=== PATIENT | female | born 1980 | race Caucasian/White ===

== ENCOUNTER 2016-08-06 19:40 | Inpatient (IN) | payer MEDICARE ==
--- NOTE | ~2016-08-06 | EKG ---
PATIENT: LUPE SOTELO UNIT #: [id number] Ventricular Rate: 75 BPM Atrial Rate: 75 BPM P-R Interval: 154 ms QRS Duration: 94 ms Q-T Interval: 390 ms QTC Calculation(Bezet): 435 ms P Dell: 55 degrees Calculated R Dell: 53 degrees Calculated T Dell: 13 degrees Diagnosis Line: Normal sinus rhythm Diagnosis Line: Normal ECG Diagnosis Line: When compared with ECG of 13-JUN-2016 05:28, Diagnosis Line: No significant change was found Diagnosis Line: Confirmed by SHRUTHI WARD MD ([id number]) on 08/07/2016 Diagnosis Line: 8:06:46 PM INTERPRETING MD: ED MILLER
--- NOTE | ~2016-08-06 | HP ---
Unit #: [id number] #: [id number] Patient: LUPE SOTELO [id number] [address] [place], [place] [address] [id number] I MR#: [id number] NAME: LUPE SOTELO. ROOM: 50014 Age: 35 Sex: F Admission Date: 08/07/2016 : 1980 Attending Physician: Gabriela Thompson M.D. Primary Care Physician: Kenya Lee M.D. HISTORY AND PHYSICAL CHIEF COMPLAINT Right leg DVT. HISTORY This pleasant 35-year-old female with remote postop PE in 2004, hypertension, is admitted for right leg DVT. Patient states that she had a cardiac catheterization performed about 3 weeks ago at [facility]. She noted some discomfort in the right leg, and some swelling in the right leg at some point afterwards. She was cleared to go on a vacation in the [facility]. Left 4 days afterwards. Developed increasing pain and swelling of the right leg and was seen at an ER in the [facility]. She reports an elevated D-dimer and that an ultrasound was performed. The ultrasound showed some lymphadenopathy but no DVT. She was placed on Levaquin. Due to increasing pain and swelling of the leg, she presented to this emergency department late last evening. Doppler performed shows right leg DVT. Patient complains of pain in the entire right leg into the right groin, right abdomen, right thigh. In the ER, she was given 5 mg Lortab but continues with pain. She was given 70 mg Lovenox and a little bit of Ativan for chest discomfort. CTA of the chest was negative for PE. The patient was treated for a pulmonary embolus which occurred after laparoscopic cholecystectomy 2004. She states that during her she was placed on Lovenox prophylactically. She denies definite hypercoagulable state that she knows of, or family history of blood clots. PAST MEDICAL HISTORY 1. Migraine headaches. 2. Cardiac catheterization recently performed at [facility] reportedly negative. On previous echo, the patient was noted to have mild MR, TR and AR. 3. Essential hypertension. 4. Hyperlipidemia. 5. Bipolar disorder. 6. Chronic nausea and vomiting status post EGD. 7. Fatty liver. 8. PE following laparoscopic cholecystectomy 2004. 9. Left shoulder surgery. 10. Jaw surgery. 11. Endometrial ablation. 12. BTL. ALLERGIES Unit #: [id number] #: [id number] Patient: LUPE SOTELO Penicillin. HOME MEDICATIONS 1. Lopressor 50 mg daily 2. Phenergan p.r.n. 3. Klonopin 1 mg b.i.d. 4. Crestor 5 mg daily 5. Aspirin 325 mg daily FAMILY HISTORY Negative for blood clots. SOCIAL HISTORY The patient lives with her and children. Lifelong nonsmoker. Drinks occasional alcohol. REVIEW OF SYSTEMS Notable for increasing pain and swelling of the right leg, right groin into the right lower abdomen. Migraines, hypertension, hyperlipidemia, bipolar disorder, chronic nausea, PE in the past, fatty liver, above-mentioned surgeries. All other systems were reviewed and are otherwise negative. PHYSICAL EXAMINATION GENERAL: Pleasant 35-year-old female currently in no acute distress. VITAL SIGNS: Temperature 98.3, pulse 90, respirations 20, blood pressure 154/101, O2 saturation 100% on room air. HEENT EXAMINATION: Eyes PERRLA. Extraocular muscles are intact. Pharynx is benign. NECK: Supple without adenopathy or thyromegaly. CHEST: Clear. CARDIAC: Normal S1, S2 without S3, S4 or murmur. ABDOMEN: Bowel sounds are present. No hepatosplenomegaly, tenderness or masses. EXTREMITIES: Notable for edema of the right leg with some mild erythema. Pedal pulses are present. Positive Homans sign. Right groin with good pulse. NEUROLOGIC EXAM: Patient is awake, alert, oriented. Cranial nerves are intact. Equal strength throughout. DIAGNOSTIC STUDIES ADMISSION LABORATORY: Hematocrit 42.8, normal white count and platelet count. SMA-12: Potassium 3.2 Lactic acid normal. IMAGING 1. Doppler of the leg: Right leg common femoral vein DVT, DVT in the superficial femoral vein and the profunda femoral vein. 2. CTA of the chest: Negative for PE. CARDIOLOGY: EKG - Normal sinus rhythm, rate 75, normal appearing. ASSESSMENT 1. Right leg deep vein thrombosis. Patient had cardiac catheterization 3 weeks ago. Four days after the cardiac catheterization did fly to Unit #: [id number] #: [id number] Patient: LUPE SOTELO the [facility]. However, she does have history of a postop DVT in 2004. Current CTA is negative. 2. Migraine headaches. 3. Essential hypertension. 4. Bipolar disorder. 5. History of nausea. PLANS 1. Continue Lovenox. Will decide on an oral anticoagulant in the morning. 2. Would recommend outpatient Hematology evaluation. 3. Pain control. 4. Obtain recent records from [facility]. 5. Decrease aspirin. 6. Replace potassium for low potassium. Dictated by Gabriela Thompson M.D. AML/psc TD: 08/07/2016 02:17 JOB #: [id number] CC: Kenya Lee M.D. HISTORY AND PHYSICAL Page 1 of 1 X Gabriela Thompson MD X HISTORY AND PHYSICAL
--- NOTE | ~2016-08-06 | CO ---
Unit #: [id number] #: [id number] Patient: LUPE SOTELO [id number] [address] [place], [place] [address] [id number] I MR#: [id number] NAME: LUPE SOTELO ROOM: 237 Age: 35 Sex: F Admission Date: 08/07/2016 : 1980 Attending Physician: So Flores M.D. Primary Care Physician: Kenya Lee M.D. Consultation Date: 08/07/2016 CONSULTATION REPORT CHIEF COMPLAINT PE in 2004 after cholecystectomy, now right lower extremity DVT after cardiac catheterization. HISTORY OF PRESENT ILLNESS This is a 35-year-old female who had a cholecystectomy during 2004. Subsequently, she developed a PE. She received three months of Coumadin. No hypercoagulable workup. No one in the family has thrombosis. On July 21, 2016, patient had a cardiac cath. Patient also had a long plane ride of almost eight hours. Patient noticed right lower extremity swelling a couple of weeks ago which gradually worsened. Patient had a venous Doppler ultrasound on August 06, 2016, that showed thrombosis in the right femoral vein, profunda femoral vein, and proximal superficial femoral vein. She is receiving Lovenox. She has significant pain and is asking for multiple pain medications. Patient had a CT of the chest on August 06, 2016, that showed no PE. REVIEW OF SYSTEMS CONSTITUTIONAL: No fever, no chills, no sweats, no weight loss. EYES: No visual symptoms. EARS, NOSE AND THROAT: There is no runny nose or sore throat or difficulty hearing. CARDIOVASCULAR: No chest pain. No shortness of breath. No palpitations. No orthopnea. No PND. RESPIRATORY: No cough. No wheezing. No hemoptysis. GASTROINTESTINAL: No nausea, vomiting, diarrhea, constipation, hematochezia or melena. GENITOURINARY: No urinary frequency, hesitancy or urgency. No blood in the urine. MUSCULOSKELETAL: As mentioned above. Right lower extremity pain. NEUROLOGIC: No headache. No numbness or tingling. No weakness. No seizure. PSYCHIATRIC: No anxiety, depression or mood disturbance. ENDOCRINE: No excessive urination or thirst. DERMATOLOGIC: No rash or change in the skin. ALLERGIC/IMMUNOLOGIC: No symptoms. HEMATOLOGIC/LYMPHATIC: Denies any symptoms. PAST MEDICAL HISTORY 1. Pulmonary embolism in 2004 after cholecystectomy. 2. Deep venous thrombosis after cardiac cath diagnosed yesterday. 3. Hypertension. 4. Increased cholesterol. Unit #: [id number] #: [id number] Patient: LUPE SOTELO 5. Depression and anxiety. PAST SURGICAL HISTORY 1. Cholecystectomy. 2. Tubal ligation. 3. Uterine ablation. 4. Left shoulder surgery. 5. Jaw surgery. ALLERGIES Penicillin. SOCIAL HISTORY No smoking, no alcohol, and no drugs. She works at [employer]. FAMILY HISTORY No one in the family has had thrombosis or bleeding. Grandmother was a smoker and had lung cancer. CURRENT MEDICATIONS 1. Lipitor. 2. Toprol. 3. Lovenox. 4. Klonopin. 5. Aspirin. 6. Percocet. PHYSICAL EXAMINATION VITAL SIGNS: Afebrile, pulse 90, respiratory rate 24, O2 saturation on 2 liters 95%, and blood pressure 160/70. GENERAL: Patient is comfortable. ECOG is 0. The patient is pleasant. HEENT: Moist mucosa. Pupils equally reactive to light. Extraocular muscles intact. Sclerae anicteric. No obvious bleeding from nasal mucosa or oral mucosa. Scalp normal. Hearing normal. NECK: No JVD. No lymphadenopathy. LYMPHATIC/HEMATOLOGIC: There is no palpable adenopathy in the neck, axilla or inguinal area. CARDIOVASCULAR: S1, S2. Regular rate and rhythm. No S3 or S4. RESPIRATORY: Chest symmetrical, normal. Clear to auscultation bilaterally. No wheezes, no rales, no rhonchi. No dullness to percussion. ABDOMEN/GASTROINTESTINAL: Abdomen is soft, nontender, nondistended. No hepatosplenomegaly. EXTREMITIES: Right lower extremity swelling and tenderness. No warmth. There is no clubbing and no cyanosis. No varicose veins. NEUROLOGICAL: Patient is alert, awake and oriented x3. Cranial nerves II-XII are intact. Sensory grossly intact. Motor is 4/5 in all four extremities. Gait is normal. Station is normal. Language is normal. Memory is normal. DTRs +2 in all four extremities. MUSCULOSKELETAL: No joint swelling. No bony tenderness. No muscle tenderness. SKIN: No petechiae, no rash, no ecchymosis. PSYCHIATRIC: No anxiety. No delusions or hallucinations. There is no agitation. Eye contact is normal. Affect is appropriate. There is no flight of ideas. DIAGNOSTIC STUDIES LABORATORY: WBC 7.3, hemoglobin 12.7, and platelets 229,000. Creatinine is 0.8. LFTs are normal. Unit #: [id number] #: [id number] Patient: LUPE SOTELO IMAGING: CT scan as mentioned above. Ultrasound as mentioned above. ASSESSMENT This is a 35-year-old female who has recurrent thrombosis. She had a pulmonary embolism in 2004 after a cholecystectomy, now with deep venous thrombosis in the right lower extremity after cardiac catheterization. Patient had access on the right lower extremity. Symptomatic. DISCUSSION I had an extensive discussion with the patient. She needs hypercoagulable workup as an outpatient. She wants Coumadin. PLAN Patient will continue Lovenox. I will start Coumadin today. Tomorrow, we will ask her to walk around. If there are no symptoms, then she will go home tomorrow afternoon. I will follow the patient on Thursday. Will monitor her PT-INR. I will do hypercoagulable workup as an outpatient. Dictated by... Sabi Tomlinson/clementine TD: 08/07/2016 14:38 JOB #: [id number] CONSULTATION REPORT Page 1 of 1 X Jamir Teran MD X CONSULTATION REPORT
--- NOTE | ~2016-08-06 | US85 ---
[facility] A Service [facility] RADIOLOGY TEXT RESULTS PATIENT: LUPE SOTELO LOCATION: [facility] 237-01 : [birth year] UNIT #: [id number] AGE: [address]: So Flores MD SEX: F ORDER DR: [id number] [facility] [address] [place], [place] [address] [id number] I MR#: [id number] Acc #: [id number] NAME: LUPE SOTELO. : 1980 SEX: F STUDY DATE/TIME: 08/06/2016 20:24 UNIT: [facility] ROOM: [facility] STUDY DESCRIPTION: US LE Veins Unilat or Ltd Stdy Attending Physician: Gabriela Thompson M.D. Ordering Physician: Josh Moses Aprn Primary Care Physician: Kenya Lee M.D. MEDICAL IMAGING REPORT This report is preliminary unless electronic signature is present EXAM Right lower extremity venous Doppler HISTORY Right lower extremity pain for 2.5 days. History of hypertension, heart cath 07/21/2016. FINDINGS 2-D and Doppler evaluation of the right lower extremity demonstrates absence of Doppler flow and noncompressible lumen of the common femoral and profunda femoral veins, and also within a portion of the superficial femoral vein compatible with deep venous thrombosis. There is normal phasic flow within the anterior-posterior tibial veins and also within the peroneal veins and proximal and distal saphenous veins. Normal flow and compressibility within these veins. IMPRESSION Abnormal right lower extremity venous Doppler demonstrating findings compatible with acute thrombus within the right common femoral vein, profunda femoral vein and proximal superficial femoral vein. Dictated by... Silvano Ramos M.D. THIS IS AN ELECTRONICALLY VERIFIED REPORT Silvano Ramos M.D. at 08/07/2016 2:03 PM PATRICIA/andrea TD: 08/06/2016 22:47 JOB #: [id number] MEDICAL IMAGING REPORT [facility] A Service [facility] RADIOLOGY TEXT RESULTS PATIENT: LUPE SOTELO LOCATION: [place] [address] : [birth year] UNIT #: [id number] AGE: [address]: So Flores MD SEX: F ORDER DR: Page 1 of 1 COPY
--- NOTE | ~2016-08-06 | CT16 ---
[facility] A Service of [facility] & [facility] RADIOLOGY TEXT RESULTS PATIENT: LUPE SOTELO LOCATION: [facility] 237-01 : [birth year] UNIT #: [id number] AGE: [address]: So Flores MD SEX: F ORDER DR: [id number] [facility] [address] [place], [place] [address] [id number] E MR#: [id number] Acc #: [id number] NAME: LUPE SOTELO : 1980 SEX: F STUDY DATE/TIME: 08/06/2016 22:06 UNIT: [facility] ROOM: STUDY DESCRIPTION: CT Angio Chest for PE Attending Physician: Chato Minor M.D. Ordering Physician: Josh Moses Aprn Primary Care Physician: Kenya Lee M.D. MEDICAL IMAGING REPORT This report is preliminary unless electronic signature is present EXAM CT angiogram for PE chest HISTORY Short of air, chest pain, heart cath 2 weeks ago with a wound in the right groin for the past week, redness in the legs, elevated liver enzymes, history of uterine ablation. COMMENTS CT of the chest performed in the axial plane during the intravenous administration of 80 mL of Isovue-370 for the purpose of obtaining a CT pulmonary angiogram. This is followed by 3-D coronal MIP reconstructed images. There is a comparison study from 04/07/2016. This CT exam was performed with one or more of the following radiation dose reduction techniques: Automatic exposure control, adjustment of mA and/or kV according to patient size, and iterative reconstruction. There is no evidence for thoracic aortic dissection. There is nothing to suggest pulmonary embolism. There is no pleural effusion. There is no pericardial effusion. There is severe degenerative change/deformity at the left humeral head. Please correlate for prior trauma history with secondary arthritis. No definite axillary lymphadenopathy. No hilar or mediastinal lymphadenopathy. Partly seen in the upper abdomen is air in the biliary tree. Please correlate for history of sphincterotomy. The patient has had a cholecystectomy. There is no pneumothorax. There is no acute-appearing parenchymal infiltrate. IMPRESSION 1. No evidence for pulmonary embolism. No thoracic aortic dissection, pleural or pericardial effusion. No parenchymal infiltrate. 2. There is some air in the biliary tree and the patient has had a RUST. [facility] A Service of [facility] RADIOLOGY TEXT RESULTS PATIENT: LUPE SOTELO LOCATION: [facility] 237-01 : [birth year] UNIT #: [id number] AGE: [address]: So Flores MD SEX: F ORDER DR: cholecystectomy. The air is probably related to a previous sphincterotomy and please correlate with the history. Dictated by... Allegra Zhong M.D. THIS IS AN ELECTRONICALLY VERIFIED REPORT Allegra Zhong M.D. at 08/07/2016 11:44 AM INDY/andrea TD: 08/06/2016 23:33 JOB #: [id number] MEDICAL IMAGING REPORT Page 1 of 1 COPY
--- NOTE | ~2016-08-06 | DS ---
Unit #: [id number] #: [id number] Patient: LUPE SOTELO [id number] [address] [address] [id number] I MR#: [id number] NAME: LUPE SOTELO. ROOM: 237 Age: 35 Sex: F Admission Date: 08/07/2016 : 1980 Discharge Date: 08/08/2016 Attending Physician: So Flores M.D. Primary Care Physician: Kenya Lee M.D. DISCHARGE SUMMARY DISCHARGE DIAGNOSES 1. Right leg deep venous thrombosis. 2. History of pulmonary embolism. 3. Migraine headaches. 4. Hypertension. 5. Bipolar. 6. History of nausea. 7. Hyperlipidemia. 8. Fatty liver. CONSULTATION Dr. Teran. PROCEDURES None. DIAGNOSTIC STUDIES LABORATORY: Blood cultures negative. Vitamin B12 421 and ferritin 31. INR 1. Creatinine 0.8. Hemoglobin 12.3. IMAGING: Ultrasound of the extremities positive for right leg DVT. CT angio of chest shows no PE. ALLERGIES Penicillin. DISCHARGE MEDICATIONS 1. Lovenox 80 mg subcu. b.i.d. for 7 more days. 2. Coumadin 5 mg p.o. daily. 3. Phenergan 25 p.o. q.6 p.r.n. nausea. 4. KlonoPIN 1 mg p.o. b.i.d. 5. Toprol XL 50 p.o. daily. 6. Rosuvastatin 5 mg p.o. daily. 7. Aspirin 81 daily. HOSPITALIZATION COURSE This is a 35-year-old admitted because right leg pain and swelling. Right leg DVT with history of PE: Started on Lovenox. Patient seen by Dr. Teran. He started on Coumadin. Patient wants to continue the Coumadin. She does not want to try any other agents. Patient was given Lovenox and Coumadin, prescription by Dr. Teran. He will follow her as an outpatient. Patient will have PT/INR checked on Thursday, which is Unit #: [id number] #: [id number] Patient: LUPE SOTELO 08/11/2016. Follow up with Dr. Teran with PT/INR results. History of chronic migraines: Stable. Bipolar: Stable. Hypertension: Well controlled. DISPOSITION Discharged home. DISCHARGE INSTRUCTIONS 1. Follow up with family physician in one week's time. 2. Patient will have Coumadin education before discharge. 3. Follow up with Dr. Teran on Thursday. Dictated by... Sabi Sutherland TD: 08/09/2016 06:09 JOB #: [id number] DISCHARGE SUMMARY Page 1 of 1 X So Flores MD X DISCHARGE SUMMARY
[~2016-08-06 19:40] MED LIST: ACETAMINOPHEN PO; ALPRAZOLAM; ALPRAZOLAM PO; AMBIEN; AMBIEN10 MG PO; AMLODIPINE BESYL5 MG PO; ASPIRIN81 M2 PO; BENZONATATE; CRESTOR PO; DICYCLOMINE HCL10 MG PO; DOLOBID PO; ERYTHROMYCIN B500 MG PO; FLEXERIL PO; FLEXERIL10 M1 PO; GEODON60 MG PO; IMITREX; KETOPROFEN PO; KLONOPIN1 MG PO; LEVAQUIN PO; LISINOPRIL5 MG PO; LOPRESSOR PO; LOVENOX; LYRICA PO; LYRICA100 MG PO; MAGIC MOUTHWASH PO; MEDROL DOSEPAK4 MG PO; METOPROLOL SUCC50 MG PO; NORVASC PO; ORUDIS75 M1 PO; OXCARBAZEPINE600 MG; PAROXETINE PO; PAXIL PO; PERCOCET5/325 PO; PHENERGAN PO; PHENERGAN12.5 MG PO; PHENERGAN25 M1 PO; PHENERGAN25 MG PO; PREDNISOLONE5 MG PO; PREDNISONE PO; PRENATAL MULITV1 TAB; SIMVASTATIN40 MG PO; STOMACH PILL; TOPAMAX25 MG PO; TOPROL XL; TOPROL XL 50 MG50 MG PO; ULTRACET TABLET1 TAB PO; VICODIN 5/500 T1 TAB PO; VOLTAREN75 MG PO; XANAX2 MG PO; ZOCOR; ZOFRAN ODT4 MG PO; ZOFRANODT SL; [UNRECOGNIZED DRUG - OTHER]
[2016-08-06 20:16] LABS: BASOPHIL# 0.1 X10e3 (0-0.3); BASOPHIL% 1.1 % (0-2.5); EOSINOPHIL# 0.3 X10e3 (0-0.7); EOSINOPHIL% 3.1 % (0.0-7.0); HEMATOCRIT 42.8 % (35.0-45.0); HEMOGLOBIN 13.9 gm/dL (12.0-16.0); LYMPHOCYTE# 1.7 X10e3 (1.0-3.5); LYMPHOCYTE% 21.5 % (17.0-45.0); MEAN CORPUSCULAR HEMOGLOBIN 27.9 PG (28-34); MEAN CORPUSCULAR HGB CONC 32.4 g/dL (30-36); MEAN PLATELET VOLUME 8.6 FL (6.5-11.5); MONOCYTE# 0.5 X10e3 (0-1.0); MONOCYTE% 5.9 % (3.0-12.0); NEUTROPHIL# 5.5 X10e3 (1.5-7.1); NEUTROPHIL% 68.4 % (40-75); PLATELET COUNT 278 X10e3 (140-420); RED BLOOD COUNT 4.98 X10e (3.90-5.30); RED CELL DISTRIBUTION WIDTH 13.9 % (11.0-15.5); WHITE BLOOD COUNT 8.1 X10e3 (4.0-10.5)
[2016-08-06 20:17] LABS: DIFF IND NO
[2016-08-06 20:42] LABS: ALBUMIN SERUM 4.7 g/dL (3.5-5.0); ALKALINE PHOSPHATASE 76 U/L (32-92); ALT (SGPT) 38 U/L (10-40); AST (SGOT) 26 U/L (10-42); BILIRUBIN,TOTAL 0.5 mg/dL (0.2-2.0); BLOOD UREA NITROGEN 14 mg/dL (9-23); CALCIUM SERUM 9.4 mg/dL (8.4-10.2); CARBON DIOXIDE 23 mmol/L (22-31); CHLORIDE 105 mmol/L (100-111); GLOM FILT RATE Estimated 71.9 mL/min (>60); GLUCOSE FASTING 102 mg/dL (70-110); POTASSIUM 3.2 mmol/L (3.5-5.1); PROTEIN TOTAL SERUM 8.1 g/dL (6.0-8.3); SODIUM 140 mmol/L (135-145)
[2016-08-06 20:44] LABS: BILIRUBIN, DIRECT <0.1 mg/dL (0.0-0.2); BILIRUBIN,INDIRECT 0.4 mg/dL (0.0-0.9)
[2016-08-06] MEDS ORDERED: CRESTOR5 MG PO (23:58)
[2016-08-06] MEDS ORDERED: LEVAQUIN750 MG PO (23:59)
[2016-08-06] MEDS ORDERED: COATED ASPIRIN325 M1 PO (23:59)
[2016-08-07 07:05] LABS: BASOPHIL# 0.1 X10e3 (0-0.3); BASOPHIL% 1.3 % (0-2.5); EOSINOPHIL# 0.3 X10e3 (0-0.7); EOSINOPHIL% 4.1 % (0.0-7.0); HEMATOCRIT 38.7 % (35.0-45.0); HEMOGLOBIN 12.7 gm/dL (12.0-16.0); LYMPHOCYTE# 2.4 X10e3 (1.0-3.5); LYMPHOCYTE% 32.8 % (17.0-45.0); MEAN CELL VOLUME 85.5 FL (83-96); MEAN CORPUSCULAR HGB CONC 32.8 g/dL (30-36); MEAN PLATELET VOLUME 8.6 FL (6.5-11.5); MONOCYTE# 0.5 X10e3 (0-1.0); MONOCYTE% 7.4 % (3.0-12.0); NEUTROPHIL% 54.4 % (40-75); PLATELET COUNT 229 X10e3 (140-420); RED BLOOD COUNT 4.53 X10e (3.90-5.30); RED CELL DISTRIBUTION WIDTH 13.8 % (11.0-15.5); WHITE BLOOD COUNT 7.3 X10e3 (4.0-10.5)
[2016-08-07 07:14] LABS: DIFF IND NO
[2016-08-07 07:21] LABS: INR 1.1; PARTIAL THROMBOPLASTIN TIME 31.1 SECONDS (23.5-31.3); PROTHROMBIN TIME (PATIENT) 11.7 SECONDS (9.6-11.5)
[2016-08-07 07:34] LABS: BUN/CREATININE RATIO 13.75; CALCIUM SERUM 8.9 mg/dL (8.4-10.2); CREATININE SERUM 0.8 mg/dL (0.6-1.4); GLOM FILT RATE Estimated 94.3 mL/min (>60); MAGNESIUM 2.1 mg/dL (1.6-3.0); POTASSIUM 3.9 mmol/L (3.5-5.1)
[2016-08-08 09:30] LABS: BASOPHIL# 0.1 X10e3 (0-0.3); EOSINOPHIL# 0.3 X10e3 (0-0.7); EOSINOPHIL% 5.6 % (0.0-7.0); HEMOGLOBIN 12.3 gm/dL (12.0-16.0); LYMPHOCYTE# 2.1 X10e3 (1.0-3.5); LYMPHOCYTE% 33.8 % (17.0-45.0); MEAN CELL VOLUME 85.8 FL (83-96); MEAN CORPUSCULAR HEMOGLOBIN 27.8 PG (28-34); MEAN CORPUSCULAR HGB CONC 32.4 g/dL (30-36); MEAN PLATELET VOLUME 8.8 FL (6.5-11.5); MONOCYTE# 0.5 X10e3 (0-1.0); MONOCYTE% 8.4 % (3.0-12.0); NEUTROPHIL# 3.2 X10e3 (1.5-7.1); NEUTROPHIL% 51.2 % (40-75); PLATELET COUNT 220 X10e3 (140-420); RED BLOOD COUNT 4.43 X10e (3.90-5.30); RED CELL DISTRIBUTION WIDTH 13.9 % (11.0-15.5); WHITE BLOOD COUNT 6.2 X10e3 (4.0-10.5)
[2016-08-08 09:33] LABS: DIFF IND NO
[2016-08-08 09:41] LABS: PARTIAL THROMBOPLASTIN TIME 33.5 SECONDS (23.5-31.3); PROTHROMBIN TIME (PATIENT) 10.7 SECONDS (9.6-11.5)
[2016-08-08 10:35] LABS: FERRITIN 31 ng/mL (11-307)
[2016-08-08 10:39] LABS: ALBUMIN SERUM 3.4 g/dL (3.5-5.0); BILIRUBIN,TOTAL 0.3 mg/dL (0.2-2.0); CALCIUM SERUM 8.8 mg/dL (8.4-10.2); CREATININE SERUM 0.8 mg/dL (0.6-1.4); GLOM FILT RATE Estimated 94.3 mL/min (>60); POTASSIUM 3.8 mmol/L (3.5-5.1); PROTEIN TOTAL SERUM 5.8 g/dL (6.0-8.3)
[2016-08-08] MEDS ORDERED: COUMADIN5 MG PO (16:09)
[2016-08-08] MEDS ORDERED: LOVENOX80 MG/0.8 INJ (16:09)
[2016-08-08] MEDS ORDERED: HYDROCODON-ACE1 EAC7 PO (16:12)
== END 2016-08-08 20:00 | disposition home or self-care (01) | DRG 301 ==
LOC: CED 19:40 → CEDOF 08-07 00:40 → C2A 08-07 17:50
PROVIDERS: Emergency Medicine; Internal Medicine; Internal Medicine Hematology; Nurse Practitioner Family
DX: I82.411 Acute embolism and thrombosis of right femoral vein (principal); K76.0 Fatty (change of) liver, not elsewhere classified; I10 Essential (primary) hypertension; E78.5 Hyperlipidemia, unspecified; F31.9 Bipolar disorder, unspecified; G43.909 Migraine, unspecified, not intractable, without status migrainosus; Z86.711 Personal history of pulmonary embolism; Z79.01 Long term (current) use of anticoagulants; Z79.82 Long term (current) use of aspirin; Z79.899 Other long term (current) drug therapy; E87.6 Hypokalemia
CPT/HCPCS: 36415; 71275; 80048; 80053; 80076; 82607; 82728; 83540; 83550; 83605; 83735; 84703; 85025; 85610; 85730; 87040; 93005; 93971; 96372; 96374; 99285; J1650; J2060; J2270; J2405; Q9967

== ENCOUNTER → 2016-08-25 | Outpatient (CLI) | payer MEDICARE ==
[~2016-08-25] MED LIST changes: +COATED ASPIRIN325 M1 PO; +COUMADIN5 MG PO; +CRESTOR5 MG PO; +HYDROCODON-ACE1 EAC7 PO; +LEVAQUIN750 MG PO; +LOVENOX80 MG/0.8 INJ
--- NOTE | ~2016-08-25 | US98 ---
[facility] A Service of [facility] & [facility] RADIOLOGY TEXT RESULTS PATIENT: LUPE SOTELO LOCATION: [facility] : [birth year] UNIT #: [id number] AGE: [address]: Kenya Lee MD SEX: F ORDER DR: [id number] [facility] [address] [place], [place] [address] [id number] O MR#: [id number] Acc #: [id number] NAME: LUPE SOTELO : 1980 SEX: F STUDY DATE/TIME: 08/25/2016 13:13 UNIT: [facility] ROOM: STUDY DESCRIPTION: US Pelvic Non-OB Complete Attending Physician: Kenya Lee M.D. Referring Physician: Kenya Lee M.D. Ordering Physician: Kenya Lee M.D. Primary Care Physician: Kenya Lee M.D. MEDICAL IMAGING REPORT This report is preliminary unless electronic signature is present EXAM Ultrasound pelvis, 08/25/2016 HISTORY 35-year-old female complaining of 1-2 week history of lower abdomen/pelvic pain. TECHNIQUE Pelvic ultrasound examination was performed transabdominally and endovaginally along with limited color Doppler imaging. LMP 08/25/2016. The uterus is normal in size measuring 12.6 cm x 5.6 cm x 4.8 cm. Small solid myometrial lesion in the upper uterine fundus measures up to 1.9 cm and has a typical appearance for a the uterine leiomyoma. Premenopausal endometrium is normal in appearance. Both ovaries are normal in size and ultrasound appearance, each containing physiologic follicles. Right ovary 3.3 cm x 2.7 cm x 3.2 cm. Left ovary 2.4 cm x 2.5 cm x 1.4 cm. No dominant ovary cyst, suspicious adnexal region mass or free pelvic fluid. Limited Doppler evaluation documents bilateral ovary blood flow. IMPRESSION Small leiomyoma in the upper uterine fundus as noted. Pelvic ultrasound examination is otherwise negative. Dictated by... Kendall Heart M.D. THIS IS AN ELECTRONICALLY VERIFIED REPORT Kendall Heart M.D. at 08/27/2016 9:16 AM SURAJ/petra [facility] A Service of [facility] & [facility] RADIOLOGY TEXT RESULTS PATIENT: LUPE SOTELO LOCATION: [facility] #: [id number] : [birth year] UNIT #: [id number] AGE: [address]: Kenya Lee MD SEX: F ORDER DR: TD: 08/25/2016 21:43 JOB #: [id number] MEDICAL IMAGING REPORT Page 1 of 1 COPY
--- NOTE | ~2016-08-25 | US5 ---
[facility] A Service of [facility] & [facility] RADIOLOGY TEXT RESULTS PATIENT: LUPE SOTELO LOCATION: [facility] : 76 UNIT #: [id number] AGE: [address]: Kenya Lee MD SEX: F ORDER DR: [id number] [facility] [address] [place], [place] [address] [id number] O MR#: [id number] Acc #: [id number] NAME: LUPE SOTELO : 1980 SEX: F STUDY DATE/TIME: 08/25/2016 9:50 UNIT: [facility] ROOM: STUDY DESCRIPTION: US Abdominal Complete Attending Physician: Kenya Lee M.D. Referring Physician: Kenya Lee M.D. Ordering Physician: Kenya Lee M.D. Primary Care Physician: Kenya Lee M.D. MEDICAL IMAGING REPORT This report is preliminary unless electronic signature is present EXAM Abdominal ultrasound complete 08/25/2016 HISTORY Abdomen pain, generalized, with particular lower abdominal pain and back pain for 1-1/2 weeks with nausea. FINDINGS The liver is homogeneous in echotexture and demonstrates no cystic or solid mass lesions. The intra- and extrahepatic bile ducts are not dilated. The gallbladder is surgically absent. The common duct measures 7 mm. The pancreas and spleen are normal. The spleen measures 9 cm in greatest diameter. The visualized portions of the abdominal aorta and inferior vena cava are within normal limits. The kidneys are normal bilaterally. IMPRESSION Surgical absence of the gallbladder. Otherwise negative abdominal ultrasound. Dictated by... Gallo Combs M.D. THIS IS AN ELECTRONICALLY VERIFIED REPORT Gallo Combs M.D. at 08/26/2016 2:27 PM ARNOLD/braden TD: 08/25/2016 18:53 JOB #: [id number] MEDICAL IMAGING REPORT Page 1 of 1 COPY
--- NOTE | ~2016-08-25 | MY11 ---
[facility] A Service of [facility] [place] RADIOLOGY TEXT RESULTS PATIENT: LUPE SOTELO LOCATION: [facility] : 76 UNIT #: [id number] AGE: [address]: Kenya Lee MD SEX: F ORDER DR: [id number] [facility] [address] [place], [place] [address] [id number] O MR#: [id number] Acc #: [id number] NAME: LUPE SOTELO. : 1980 SEX: F STUDY DATE/TIME: 08/25/2016 10:46 UNIT: [facility] ROOM: STUDY DESCRIPTION: MY Mammogram Screening Dig Faizan Attending Physician: Kenya Lee M.D. Referring Physician: Kenya Lee M.D. Ordering Physician: Kenya Lee M.D. Primary Care Physician: Kenya Lee M.D. MEDICAL IMAGING REPORT This report is preliminary unless electronic signature is present EXAM Bilateral digital screening mammogram with CAD, 08/25/2016. INDICATION Routine screening. No reported problems. No personal or family history of breast cancer. No surgeries. TECHNIQUE CC and MLO views of the breast were obtained and reviewed with an FDA-approved CAD device. COMPARISON STUDIES The patient has no comparison studies from the past 5-10 years. This will serve as her new baseline. FINDINGS Breast parenchyma is heterogeneously dense. This degrades sensitivity of screening mammography. The pattern is symmetric. There is no dominant nodule, mass, or suspicious cluster of microcalcifications. Prominent but otherwise benign appearing axillary node on the right is nonspecific but likely reactive and benign and should be correlated clinically. IMPRESSION Negative screening mammogram. 1 year followup recommended. Patients over the age of 40 are entered into a reminder system with target due date for the next mammogram. A result letter will also be sent to the patient. BIRADS: 1 Negative [facility] A Service of [facility] RADIOLOGY TEXT RESULTS PATIENT: LUPE SOTELO LOCATION: [facility] : 76 UNIT #: [id number] AGE: [address]: Kenya Lee MD SEX: F ORDER DR: Dictated by... Luciano Camargo M.D. THIS IS AN ELECTRONICALLY VERIFIED REPORT Luciano Camargo M.D. at 08/25/2016 4:59 PM JOY/meli TD: 08/25/2016 11:45 JOB #: [id number] MEDICAL IMAGING REPORT Page 1 of 1 COPY
== END | disposition home or self-care (01) ==
LOC: CWCC 09:24
DX: Z12.31 Encounter for screening mammogram for malignant neoplasm of breast (principal); R10.32 Left lower quadrant pain; R10.2 Pelvic and perineal pain; R10.31 Right lower quadrant pain; Z80.3 Family history of malignant neoplasm of breast; D25.9 Leiomyoma of uterus, unspecified; Z90.49 Acquired absence of other specified parts of digestive tract
CPT/HCPCS: 76700; 76830; 76856; G0202

== ENCOUNTER → 2016-11-17 | Outpatient (CLI) | payer MEDICARE ==
--- NOTE | ~2016-11-17 | US85 ---
[facility] A Service of [facility] [place] RADIOLOGY TEXT RESULTS PATIENT: LUPE SOTELO LOCATION: [facility] : 76 UNIT #: [id number] AGE: [address]: Jamir Teran MD SEX: F ORDER DR: [id number] [facility] [address] [place], [place] [address] [id number] O MR#: [id number] Acc #: [id number] NAME: LUPE SOTELO : 1980 SEX: F STUDY DATE/TIME: 11/17/2016 11:38 UNIT: [facility] ROOM: STUDY DESCRIPTION: LE Veins Unilat or Ltd Stdy Attending Physician: Jamir Teran M.D. Referring Physician: Jamir Teran M.D. Ordering Physician: Jamir Teran M.D. Primary Care Physician: Kenya Lee M.D. MEDICAL IMAGING REPORT This report is preliminary unless electronic signature is present EXAM Right lower extremity venous duplex 11/17/2016 HISTORY Right leg pain since July 2016. Evaluate for deep vein thrombosis. TECHNIQUE Venous ultrasound examination of the right lower extremity was performed using grayscale, spectral Doppler and color flow Doppler imaging. FINDINGS The examination is negative. There is no evidence of right lower extremity deep venous thrombus from the groin to the lower calf. Visualized greater saphenous vein is also patent. IMPRESSION Negative examination. No evidence of right lower extremity deep venous thrombosis. Dictated by... Gallo Combs M.D. THIS IS AN ELECTRONICALLY VERIFIED REPORT Gallo Combs M.D. at 11/18/2016 2:12 PM KRT/pcl TD: 11/17/2016 23:47 JOB #: [id number] MEDICAL IMAGING REPORT Page 1 of 1 COPY
== END | disposition home or self-care (01) ==
LOC: CNIV 10:57
DX: I82.501 Chronic embolism and thrombosis of unspecified deep veins of right lower extremity (principal); D72.829 Elevated white blood cell count, unspecified; M79.604 Pain in right leg
CPT/HCPCS: 93971